=== PATIENT | female | born 1965 | race Caucasian/White ===

== ENCOUNTER 2021-11-19 22:02 | Emergency (ER) | payer OTHER ==
[2021-11-19] MEDS ORDERED: Lidocaine 1% with EPINEPHrine 1:100,000 50 ML MDV SUBCUT STA (22:36)
[2021-11-19] MEDS ORDERED: Bacitracin Oint 1 GM U/D Packet TOP ONE (22:36)
== END 2021-11-19 23:28 | disposition home or self-care (01) ==
LOC: JP.ED 22:02
DX: S01.81XA Laceration without foreign body of other part of head, initial encounter (principal); Z88.0 Allergy status to penicillin; W01.198A Fall on same level from slipping, tripping and stumbling with subsequent striking against other object, initial encounter
CPT/HCPCS: 12011; 99282; 99282-25